=== PATIENT | male | born 1970 | race Two or more races ===

== ENCOUNTER 2019-04-07 10:06 | Outpatient (CLI) | payer OTHER | END 2019-04-07 15:00 | disposition home or self-care (01) | LOC: LAB 10:06 | DX: D64.89 Other specified anemias (principal); E78.00 Pure hypercholesterolemia, unspecified; E03.8 Other specified hypothyroidism; E55.9 Vitamin D deficiency, unspecified ==

== ENCOUNTER → 2019-04-07 11:13 | Outpatient (CLI) | payer OTHER | END | disposition home or self-care (01) | LOC: RAD 11:13 | DX: M54.5 Low back pain (principal); M54.6 Pain in thoracic spine ==